=== PATIENT | female | born 1960 | race Caucasian/White ===

== ENCOUNTER → 2016-10-19 | Outpatient (CLI) | payer OTHER | LOC: KOH-I 13:52 | DX: I65.23 Occlusion and stenosis of bilateral carotid arteries (principal); R51 Headache; R90.89 Other abnormal findings on diagnostic imaging of central nervous system | CPT/HCPCS: 70551; 93880 ==

== ENCOUNTER → 2020-11-04 | Outpatient (CLI) | payer OTHER ==
[~2020-11-04] MED LIST: ZOFRAN ODT 4 MG4 MG SL
== END ==
LOC: MAMO 12:58
DX: Z12.31 Encounter for screening mammogram for malignant neoplasm of breast (principal)
CPT/HCPCS: 77063; 77067